=== PATIENT | female | born 1965 | race Hispanic/Latino ===

== ENCOUNTER 2020-08-03 20:56 | Emergency (ER) | payer OTHER ==
[2020-08-03] MEDS ORDERED: ORPHENADRINE CITRATE 30 MG/ML ML ONE (22:16)
[2020-08-03 22:21] LABS: BASOPHILS % (AUTO) 0.3 % (0.0-5.0); EOSINOPHILS % (AUTO) 1.5 % (0.0-8.0); HEMATOCRIT 40.6 % (36-48); LYMPHOCYTES % (AUTO) 31.7 % (21.0-51.0); MEAN CORPUSCULAR HEMOGLOBIN 30.2 pg (27.0-33.0); MEAN CORPUSCULAR HGB CONC 34.2 g/dL (32.0-36.0); MEAN CORPUSCULAR VOLUME 88.3 fL (79-99); MONOCYTES % (AUTO) 6.8 % (3.0-13.0); NEUTROPHILS % (AUTO) 59.4 % (40.0-77.0); PLATELET COUNT (AUTO) 199 K/uL (130-400); WHITE BLOOD COUNT (AUTO) 9.5 K/uL (4.8-10.8)
[2020-08-03 22:40] LABS: INR 0.91 (0.85-1.15); PROTHROMBIN TIME 9.8 SEC (9.6-11.6)
[2020-08-03 22:41] LABS: PARTIAL THROMBOPLASTIN TIME 28.2 SEC (26.3-35.5)
[2020-08-03 22:49] LABS: CREATININE 0.8 mg/dL (0.5-1.5); POTASSIUM 3.5 mmol/L (3.5-5.1)
[2020-08-03 22:54] LABS: ALBUMIN 3.8 g/dL (3.5-5.0); BILIRUBIN,TOTAL 0.6 mg/dL (0.2-1.0); TOTAL PROTEIN, SERUM 7.5 g/dL (6.0-8.3)
[2020-08-04] MEDS ORDERED: IOHEXOL-350 75 ML VIAL IV ONE (00:01)
[2020-08-04 01:18] LABS: APPEARANCE,URINE Clear (CLEAR); BILIRUBIN,URINE Negative (NEGATIVE); COLOR,URINE Yellow (YELLOW); GLUCOSE, URINE (UA) Negative (NEGATIVE); KETONES,URINE Negative (NEGATIVE); LEUKOCYTE ESTERASE ,URINE Negative (NEGATIVE); NITRATE,URINE Negative (NEGATIVE); OCCULT BLOOD,URINE Negative (NEGATIVE); PROTEIN,URINE Negative (NEGATIVE); UROBILINOGEN,URINE 0.2 mg/dL (0.2-1.0)
[2020-08-04] MEDS ORDERED: KETOROLAC TROMETHAMINE 30MG/ML ONE (02:22)
== END 2020-08-04 02:36 | disposition home or self-care (01) ==
LOC: EDH 20:56
DX: M62.830 Muscle spasm of back (principal); R07.89 Other chest pain; R51.9 Headache, unspecified; I10 Essential (primary) hypertension; Z90.710 Acquired absence of both cervix and uterus; Z79.899 Other long term (current) drug therapy
CPT/HCPCS: 36415; 70450; 70496; 70498; 71275; 74174; 80053; 81003; 82550; 83690; 84484; 85025; 85610; 85730; 93005; 96361; 96374; 96375; 99285; J1885; J2360; Q9967

== ENCOUNTER 2022-01-26 07:08 | Emergency (ER) | payer OTHER ==
[~2022-01-26] VITALS: Ht 167.6 cm; Wt 71.7 kg
[2022-01-26 07:47] LABS: BASOPHILS % (AUTO) 0.5 % (0.0-5.0); EOSINOPHILS % (AUTO) 1.5 % (0.0-8.0); HEMATOCRIT 45.6 % (36-48); LYMPHOCYTES % (AUTO) 16.3 % (21.0-51.0); MEAN CORPUSCULAR HEMOGLOBIN 29.7 pg (27.0-33.0); MEAN CORPUSCULAR VOLUME 87.4 fL (79-99); MONOCYTES % (AUTO) 6.3 % (3.0-13.0); NEUTROPHILS % (AUTO) 75.2 % (40.0-77.0); PLATELET COUNT (AUTO) 182 K/uL (130-400); RED BLOOD CELL COUNT(AUTO) 5.22 MIL/uL (4.00-5.50); RED CELL DISTRIBUTION WIDTH 12.1 % (11.0-15.5); WHITE BLOOD COUNT (AUTO) 8.2 K/uL (4.8-10.8)
[2022-01-26] MEDS ORDERED: LIDOCAINE HCL 2% VISCOUS 15 ML UDCUP PO ONE (08:00)
[2022-01-26] MEDS ORDERED: DICYCLOMINE HCL 10 MG/5 ML ML PO ONE (08:00)
[2022-01-26] MEDS ORDERED: MAG/ALUM/SIMETH 30 ML UDCUP PO ONE (08:00)
[2022-01-26 08:08] LABS: ALBUMIN 4.2 g/dL (3.5-5.0); BILIRUBIN,TOTAL 1.5 mg/dL (0.2-1.0); CREATININE 0.8 mg/dL (0.5-1.5); POTASSIUM 3.7 mmol/L (3.5-5.1); TOTAL PROTEIN, SERUM 8.2 g/dL (6.0-8.3)
[2022-01-26] MEDS ORDERED: KETOROLAC 15MG/ML VIAL (15MG/ML) IM ONE (09:00)
[2022-01-26] MEDS ORDERED: ONDANSETRON ODT 4MG TAB SL ONE (09:00)
[2022-01-26 09:22] VITALS: BP 137/62
[2022-01-26] MEDS ORDERED: ACET-2079 PO (09:44)
[2022-01-26] MEDS ORDERED: IBUP-2070 PO (09:44)
[2022-01-26] MEDS ORDERED: ONDA-104 PO (09:44)
== END 2022-01-26 10:36 | disposition home or self-care (01) ==
LOC: EDH 07:08
DX: K80.80 Other cholelithiasis without obstruction (principal); K80.50 Calculus of bile duct without cholangitis or cholecystitis without obstruction; I10 Essential (primary) hypertension; Z98.890 Other specified postprocedural states
CPT/HCPCS: 36415; 76705; 80053; 83690; 85025; 96372; 99284; J1885